=== PATIENT | male | born 1960 | race Hispanic/Latino ===

== ENCOUNTER 2023-12-24 13:06 | Emergency (ER) | payer MEDICARE ==
[~2023-12-24] VITALS: Ht 167.6 cm; Wt 74.8 kg
[2023-12-24] MEDS ORDERED: IOPAMIDOL 370 MG/ML 100 ML INFUS..BTL INJ ONE (13:41)
[2023-12-24] MEDS: SODIUM CHLORIDE 0.9% 1000ML 1,000 ML IV ONE (14:08)
[2023-12-24] MEDS: ONDANSETRON HCL INJ 2MG/ML 2ML 2 MG/ML VIAL IV STA (14:09)
[2023-12-24] MEDS: FAMOTIDINE 20 MG/2 ML VIAL IV STA (14:09)
[2023-12-24] MEDS ORDERED: FAMOTIDINE 20 MG/2 ML VIAL IV ONE (14:10)
[2023-12-24 16:24] VITALS: PULSE 73; RESP 16; TEMP 97.7
[2023-12-24] MEDS: DEXAMETHASONE SOD PHOS INJ 4 MG/ML SDV IV ONE (16:29)
[2023-12-24 18:07] VITALS: BP 131/73; PULSE 74; RESP 18; TEMP 97.5; O2SAT 96
== END 2023-12-24 18:20 | disposition other institution (70) ==
LOC: FSED 13:09
DX: R11.2 Nausea with vomiting, unspecified (principal); N19 Unspecified kidney failure; G93.9 Disorder of brain, unspecified; R10.13 Epigastric pain; K40.90 Unilateral inguinal hernia, without obstruction or gangrene, not specified as recurrent; N28.1 Cyst of kidney, acquired; I10 Essential (primary) hypertension; E78.5 Hyperlipidemia, unspecified
CPT/HCPCS: 70450; 74176; 80048; 80076; 80307; 81003; 84484; 85025; 93005; 99284; J1100; J2405; J7030; Q9967